=== PATIENT | male | born 1975 | race Caucasian/White ===

== ENCOUNTER 2021-10-06 10:50 | Inpatient (IN) | payer OTHER ==
[2021-10-06 11:35] VITALS: BMI 24.3
[2021-10-06] MEDS ORDERED: ACETAMINOPHEN 325 MG TABLET (FP) PO PRN ×2 (11:46)
[2021-10-06] MEDS ORDERED: BISMUTH SUBSALICYLATE 262 MG/15 ML BTL PO PRN (11:46)
[2021-10-06] MEDS ORDERED: MENTHOL/PHENOL 1 EACH UD MM PRN (11:46)
[2021-10-06] MEDS ORDERED: MAG HYDROX/AL HYDROX/SIMETH 30 ML UNIT-DOSE CUP PO PRN (11:46)
[2021-10-06] MEDS ORDERED: IBUPROFEN 400 MG TABLET (FP) PO PRN (11:46)
[2021-10-06] MEDS ORDERED: NICOTINE 10 MG CARTRIDGE (INHALER) IH PRN (11:46)
[2021-10-06] MEDS ORDERED: LORazepam 1 MG TABLET PO PRN (11:46)
[2021-10-06] MEDS ORDERED: MAGNESIUM CITRATE 300 ML BOTTLE PO PRN (11:46)
[2021-10-06] MEDS ORDERED: MAGNESIUM HYDROX 2400MG/30ML ORAL SUSPENSION 30 ML CUP PO PRN (11:46)
[2021-10-06] MEDS ORDERED: ONDANSETRON *ODT* 4 MG TABLET SL PRN (11:46)
[2021-10-06] MEDS: hydrOXYzine PAMOATE 25 MG CAPSULE (FP) PO SCH ×3 (13:29→22:22)
[2021-10-06 16:18] LABS: HEMATOCRIT 33.8 % (35.4-49); HEMOGLOBIN 11.5 GM/dL (11.7-16.9); MCH 34.3 pg (25.7-33.7); MCHC 34.1 g/dl (32.0-35.9); MEAN CELL VOLUME 100.5 fl (80-96); MEAN PLT VOLUME 8.3 fl (7.5-11.1); PLATELET COUNT 233 10^3/uL (134-434); RBC 3.36 M/mm3 (4.00-5.60); RDW 17.4 % (11.9-15.9); WHITE BLOOD COUNT 6.9 K/mm3 (4.0-10.0)
[2021-10-06 16:21] LABS: BLOOD UREA NITROGEN 7.5 mg/dL (7-18)
[2021-10-06 16:22] LABS: ALBUMIN 2.7 g/dl (3.4-5.0)
[2021-10-06 16:23] LABS: CALCIUM 8.6 mg/dL (8.5-10.1)
[2021-10-06 16:24] LABS: BILIRUBIN,TOTAL 1.4 mg/dL (0.2-1); CREATININE 0.6 mg/dL (0.55-1.3); TOT PROT 7.6 g/dl (6.4-8.2)
[2021-10-06 17:18] LABS: HIV INTERPRETATION NEGATIVE (NEGATIVE)
[2021-10-06] MEDS: LORazepam 2 MG TABLET PO SCH ×2 (18:05→22:22)
[2021-10-06] MEDS: THIAMINE HCL 100 MG TABLET (FP) PO SCH (22:22)
[2021-10-06] MEDS: MELATONIN 5 MG TABLETS PO SCH (22:23)
[2021-10-07] MEDS: LORazepam 2 MG TABLET PO SCH ×4 (05:17→22:17)
[2021-10-07] MEDS: hydrOXYzine PAMOATE 25 MG CAPSULE (FP) PO SCH ×5 (05:17→22:17)
[2021-10-07] MEDS ORDERED: methaDONE HCL 40 MG DISPERSABLE TABLET PO ONE (10:06)
[2021-10-07] MEDS: PRENATAL VITAMINS W/ FOLIC ACID TABLET (FP) PO SCH (10:40)
[2021-10-07] MEDS: LACTULOSE 20 GM/30 ML UDC (FOR ORAL USE ONLY) PO SCH ×2 (11:24→22:19)
[2021-10-07 12:33] LABS: HEMATOCRIT 35.1 % (35.4-49); HEMOGLOBIN 11.8 GM/dL (11.7-16.9); MCH 33.9 pg (25.7-33.7); MCHC 33.6 g/dl (32.0-35.9); MEAN CELL VOLUME 100.9 fl (80-96); MEAN PLT VOLUME 8.3 fl (7.5-11.1); PLATELET COUNT 210 10^3/uL (134-434); RBC 3.48 M/mm3 (4.00-5.60); RDW 17.5 % (11.9-15.9); WHITE BLOOD COUNT 6.3 K/mm3 (4.0-10.0)
[2021-10-07 12:36] LABS: CALCIUM 8.8 mg/dL (8.5-10.1)
[2021-10-07 12:37] LABS: ALBUMIN 2.5 g/dl (3.4-5.0); BLOOD UREA NITROGEN 6.8 mg/dL (7-18)
[2021-10-07 12:40] LABS: CREATININE 0.7 mg/dL (0.55-1.3)
[2021-10-07 12:42] LABS: BILIRUBIN,TOTAL 1.3 mg/dL (0.2-1); TOT PROT 7.2 g/dl (6.4-8.2)
[2021-10-07] MEDS: THIAMINE HCL 100 MG TABLET (FP) PO SCH (22:18)
[2021-10-07] MEDS: MELATONIN 5 MG TABLETS PO SCH (22:18)
[2021-10-08] MEDS: hydrOXYzine PAMOATE 25 MG CAPSULE (FP) PO SCH ×5 (05:17→22:12)
[2021-10-08] MEDS: LORazepam 1 MG TABLET PO SCH ×4 (05:17→22:12)
[2021-10-08] MEDS: methaDONE HCL 40 MG DISPERSABLE TABLET PO SCH (05:17)
[2021-10-08 10:36] LABS: ALBUMIN 2.8 g/dl (3.4-5.0)
[2021-10-08 10:41] LABS: BILIRUBIN,TOTAL 1.6 mg/dL (0.2-1); TOT PROT 7.8 g/dl (6.4-8.2)
[2021-10-08] MEDS: LACTULOSE 20 GM/30 ML UDC (FOR ORAL USE ONLY) PO SCH ×2 (10:51→22:12)
[2021-10-08] MEDS: PRENATAL VITAMINS W/ FOLIC ACID TABLET (FP) PO SCH (10:52)
[2021-10-08] MEDS: METHOCARBAMOL 500 MG TABLET PO PRN (10:52)
[2021-10-08] MEDS: MELATONIN 5 MG TABLETS PO SCH (22:12)
[2021-10-08] MEDS: THIAMINE HCL 100 MG TABLET (FP) PO SCH (22:12)
[2021-10-09] MEDS ORDERED: LORazepam 0.5 MG TABLET PO PRN
[2021-10-09] MEDS: LORazepam 0.5 MG TABLET PO SCH ×4 (05:17→22:13)
[2021-10-09] MEDS: hydrOXYzine PAMOATE 25 MG CAPSULE (FP) PO SCH ×5 (05:17→22:12)
[2021-10-09] MEDS: methaDONE HCL 40 MG DISPERSABLE TABLET PO SCH (05:17)
[2021-10-09] MEDS: PRENATAL VITAMINS W/ FOLIC ACID TABLET (FP) PO SCH (10:15)
[2021-10-09] MEDS: METHOCARBAMOL 500 MG TABLET PO PRN (10:15)
[2021-10-09] MEDS: LACTULOSE 20 GM/30 ML UDC (FOR ORAL USE ONLY) PO SCH ×2 (10:15→22:12)
[2021-10-09] MEDS: THIAMINE HCL 100 MG TABLET (FP) PO SCH (22:12)
[2021-10-09] MEDS: MELATONIN 5 MG TABLETS PO SCH (22:12)
[2021-10-10] MEDS ORDERED: LORazepam 0.5 MG TABLET PO ONE (05:00)
[2021-10-10] MEDS: hydrOXYzine PAMOATE 25 MG CAPSULE (FP) PO SCH ×2 (05:18→10:19)
[2021-10-10] MEDS: methaDONE HCL 40 MG DISPERSABLE TABLET PO SCH (05:18)
[2021-10-10 09:12] VITALS: BP 107/67; PULSE 83; TEMP 97.1
[2021-10-10] MEDS: LACTULOSE 20 GM/30 ML UDC (FOR ORAL USE ONLY) PO SCH (10:19)
[2021-10-10] MEDS: PRENATAL VITAMINS W/ FOLIC ACID TABLET (FP) PO SCH (10:19)
== END 2021-10-10 12:12 | disposition home or self-care (01) | DRG 897 ==
LOC: YASAS 10:50 → Y6N 12:17
PROVIDERS: ADMIT Allergy & Immunology; ATTEND Allergy & Immunology
PROC: HZ2ZZZZ Detoxification Services for Substance Abuse Treatment (ICD-10-PCS; principal; 2021-10-06)
DX: F10.230 Alcohol dependence with withdrawal, uncomplicated (principal); F11.20 Opioid dependence, uncomplicated; E72.20 Disorder of urea cycle metabolism, unspecified; F10.282 Alcohol dependence with alcohol-induced sleep disorder; F17.210 Nicotine dependence, cigarettes, uncomplicated; F32.A Depression, unspecified; K70.31 Alcoholic cirrhosis of liver with ascites; D64.9 Anemia, unspecified; E80.6 Other disorders of bilirubin metabolism; R74.01 Elevation of levels of liver transaminase levels; R73.09 Other abnormal glucose; K21.9 Gastro-esophageal reflux disease without esophagitis; Z62.810 Personal history of physical and sexual abuse in childhood
CPT/HCPCS: 36415; 80053; 80076; 82140; 82962; 85027; 86780; 87389; C9803; U0003; U0005

== ENCOUNTER 2021-10-18 12:54 | Inpatient (IN) | payer OTHER ==
[2021-10-18] MEDS ORDERED: BISMUTH SUBSALICYLATE 524 MG/30 ML PO PRN (15:11)
[2021-10-18] MEDS ORDERED: MAG HYDROX/AL HYDROX/SIMETH 30 ML UNIT-DOSE CUP PO PRN (15:11)
[2021-10-18] MEDS ORDERED: ACETAMINOPHEN 325 MG TABLET (FP) PO PRN ×2 (15:11)
[2021-10-18] MEDS ORDERED: METHOCARBAMOL 500 MG TABLET PO PRN (15:11)
[2021-10-18] MEDS ORDERED: NICOTINE 10 MG CARTRIDGE (INHALER) IH PRN (15:11)
[2021-10-18] MEDS ORDERED: MAGNESIUM CITRATE 300 ML BOTTLE PO PRN (15:11)
[2021-10-18] MEDS ORDERED: MAGNESIUM HYDROX 2400MG/30ML ORAL SUSPENSION 30 ML CUP PO PRN (15:11)
[2021-10-18] MEDS ORDERED: ONDANSETRON *ODT* 4 MG TABLET SL PRN (15:11)
[2021-10-18] MEDS ORDERED: IBUPROFEN 400 MG TABLET (FP) PO PRN (15:11)
[2021-10-18] MEDS ORDERED: MENTHOL/PHENOL 1 EACH UD MM PRN (15:11)
[2021-10-18 15:22] VITALS: BMI 24.6
[2021-10-18] MEDS: hydrOXYzine PAMOATE 25 MG CAPSULE (FP) PO SCH ×2 (17:28→22:55)
[2021-10-18] MEDS: PANTOPRAZOLE 40 MG TABLET PO SCH (22:54)
[2021-10-18] MEDS: MELATONIN 5 MG TABLETS PO SCH (22:54)
[2021-10-18] MEDS: THIAMINE HCL 100 MG TABLET (FP) PO SCH (22:55)
[2021-10-19] MEDS: hydrOXYzine PAMOATE 25 MG CAPSULE (FP) PO SCH ×5 (08:38→22:31)
[2021-10-19] MEDS ORDERED: LORazepam 1 MG TABLET PO PRN (09:30)
[2021-10-19] MEDS ORDERED: SPIRONOLACTONE 100 MG PO SCH (10:00)
[2021-10-19] MEDS ORDERED: PATIENT'S OWN MEDICATION (NON-FORMULARY) (Thiamine Mononitrate [Vitamin B-1] 100 MG Tablet PO SCH (10:00)
[2021-10-19 10:02] LABS: HEMATOCRIT 35.9 % (35.4-49); HEMOGLOBIN 12.1 GM/dL (11.7-16.9); MCHC 33.7 g/dl (32.0-35.9); MEAN CELL VOLUME 97.9 fl (80-96); MEAN PLT VOLUME 8.3 fl (7.5-11.1); PLATELET COUNT 170 10^3/uL (134-434); RBC 3.67 M/mm3 (4.00-5.60); RDW 16.5 % (11.9-15.9); WHITE BLOOD COUNT 5.5 K/mm3 (4.0-10.0)
[2021-10-19 10:16] LABS: CALCIUM 8.6 mg/dL (8.5-10.1)
[2021-10-19 10:17] LABS: ALBUMIN 2.8 g/dl (3.4-5.0); BLOOD UREA NITROGEN 8.7 mg/dL (7-18); CREATININE 0.7 mg/dL (0.55-1.3)
[2021-10-19 10:19] LABS: BILIRUBIN,TOTAL 1.1 mg/dL (0.2-1); TOT PROT 6.8 g/dl (6.4-8.2)
[2021-10-19] MEDS: PRENATAL VITAMINS W/ FOLIC ACID TABLET (FP) PO SCH (10:22)
[2021-10-19] MEDS: PANTOPRAZOLE 40 MG TABLET PO SCH ×2 (10:23→22:30)
[2021-10-19] MEDS: FUROSEMIDE 40 MG TABLET (FP) PO SCH (10:23)
[2021-10-19] MEDS: FOLIC ACID 1 MG TABLET (FP) PO SCH (10:23)
[2021-10-19] MEDS: methaDONE HCL 40 MG DISPERSABLE TABLET PO SCH (10:23)
[2021-10-19] MEDS: SPIRONOLACTONE 25 MG TABLET PO SCH (11:24)
[2021-10-19] MEDS: CYANOCOBALAMIN (VITAMIN B-12) 100 MCG TABLET PO SCH (11:25)
[2021-10-19] MEDS: LORazepam 2 MG TABLET PO SCH ×3 (11:25→22:31)
[2021-10-19] MEDS: MELATONIN 5 MG TABLETS PO SCH (22:31)
[2021-10-19] MEDS: THIAMINE HCL 100 MG TABLET (FP) PO SCH (22:32)
[2021-10-20] MEDS: LORazepam 2 MG TABLET PO SCH ×4 (05:32→22:14)
[2021-10-20] MEDS: hydrOXYzine PAMOATE 25 MG CAPSULE (FP) PO SCH ×5 (05:32→22:15)
[2021-10-20] MEDS: methaDONE HCL 40 MG DISPERSABLE TABLET PO SCH (05:32)
[2021-10-20] MEDS: SPIRONOLACTONE 25 MG TABLET PO SCH (10:48)
[2021-10-20] MEDS: FOLIC ACID 1 MG TABLET (FP) PO SCH (10:48)
[2021-10-20] MEDS: PRENATAL VITAMINS W/ FOLIC ACID TABLET (FP) PO SCH (10:50)
[2021-10-20] MEDS: FUROSEMIDE 40 MG TABLET (FP) PO SCH (10:52)
[2021-10-20] MEDS: CYANOCOBALAMIN (VITAMIN B-12) 100 MCG TABLET PO SCH (10:53)
[2021-10-20] MEDS: PANTOPRAZOLE 40 MG TABLET PO SCH ×2 (10:53→22:15)
[2021-10-20] MEDS: THIAMINE HCL 100 MG TABLET (FP) PO SCH (22:15)
[2021-10-20] MEDS: MELATONIN 5 MG TABLETS PO SCH (22:16)
[2021-10-21] MEDS: LORazepam 1 MG TABLET PO SCH ×4 (05:40→22:38)
[2021-10-21] MEDS: methaDONE HCL 40 MG DISPERSABLE TABLET PO SCH (05:40)
[2021-10-21] MEDS: hydrOXYzine PAMOATE 25 MG CAPSULE (FP) PO SCH ×5 (05:40→22:38)
[2021-10-21] MEDS: FUROSEMIDE 40 MG TABLET (FP) PO SCH (10:12)
[2021-10-21] MEDS: PANTOPRAZOLE 40 MG TABLET PO SCH ×2 (10:12→22:38)
[2021-10-21] MEDS: FOLIC ACID 1 MG TABLET (FP) PO SCH (10:12)
[2021-10-21] MEDS: PRENATAL VITAMINS W/ FOLIC ACID TABLET (FP) PO SCH (10:12)
[2021-10-21] MEDS: CYANOCOBALAMIN (VITAMIN B-12) 100 MCG TABLET PO SCH (10:13)
[2021-10-21] MEDS: SPIRONOLACTONE 25 MG TABLET PO SCH (10:13)
[2021-10-21] MEDS: THIAMINE HCL 100 MG TABLET (FP) PO SCH (22:38)
[2021-10-21] MEDS: MELATONIN 5 MG TABLETS PO SCH (22:38)
[2021-10-22] MEDS ORDERED: LORazepam 0.5 MG TABLET PO PRN
[2021-10-22] MEDS: hydrOXYzine PAMOATE 25 MG CAPSULE (FP) PO SCH ×5 (05:24→22:42)
[2021-10-22] MEDS: LORazepam 0.5 MG TABLET PO SCH ×4 (05:24→22:42)
[2021-10-22] MEDS: methaDONE HCL 40 MG DISPERSABLE TABLET PO SCH (05:24)
[2021-10-22] MEDS: PRENATAL VITAMINS W/ FOLIC ACID TABLET (FP) PO SCH (10:31)
[2021-10-22] MEDS: FOLIC ACID 1 MG TABLET (FP) PO SCH (10:31)
[2021-10-22] MEDS: FUROSEMIDE 40 MG TABLET (FP) PO SCH (10:31)
[2021-10-22] MEDS: SPIRONOLACTONE 25 MG TABLET PO SCH (10:31)
[2021-10-22] MEDS: PANTOPRAZOLE 40 MG TABLET PO SCH ×2 (10:31→22:42)
[2021-10-22] MEDS: CYANOCOBALAMIN (VITAMIN B-12) 100 MCG TABLET PO SCH (10:34)
[2021-10-22] MEDS: THIAMINE HCL 100 MG TABLET (FP) PO SCH (22:42)
[2021-10-22] MEDS: MELATONIN 5 MG TABLETS PO SCH (22:42)
[2021-10-23] MEDS ORDERED: LORazepam 0.5 MG TABLET PO ONE (05:00)
[2021-10-23] MEDS: methaDONE HCL 40 MG DISPERSABLE TABLET PO SCH (05:46)
[2021-10-23] MEDS: hydrOXYzine PAMOATE 25 MG CAPSULE (FP) PO SCH ×5 (05:46→22:18)
[2021-10-23] MEDS: SPIRONOLACTONE 25 MG TABLET PO SCH (10:21)
[2021-10-23] MEDS: CYANOCOBALAMIN (VITAMIN B-12) 100 MCG TABLET PO SCH (10:21)
[2021-10-23] MEDS: PRENATAL VITAMINS W/ FOLIC ACID TABLET (FP) PO SCH (10:21)
[2021-10-23] MEDS: PANTOPRAZOLE 40 MG TABLET PO SCH ×2 (10:21→22:18)
[2021-10-23] MEDS: FOLIC ACID 1 MG TABLET (FP) PO SCH (10:21)
[2021-10-23] MEDS: FUROSEMIDE 40 MG TABLET (FP) PO SCH (10:21)
[2021-10-23] MEDS: MELATONIN 5 MG TABLETS PO SCH (22:18)
[2021-10-23] MEDS: THIAMINE HCL 100 MG TABLET (FP) PO SCH (22:18)
[2021-10-24] MEDS: hydrOXYzine PAMOATE 25 MG CAPSULE (FP) PO SCH ×2 (05:24→10:24)
[2021-10-24] MEDS: methaDONE HCL 40 MG DISPERSABLE TABLET PO SCH (05:24)
[2021-10-24 09:02] VITALS: BP 110/67; PULSE 81; TEMP 97.5
[2021-10-24] MEDS: PANTOPRAZOLE 40 MG TABLET PO SCH (10:24)
[2021-10-24] MEDS: CYANOCOBALAMIN (VITAMIN B-12) 100 MCG TABLET PO SCH (10:24)
[2021-10-24] MEDS: SPIRONOLACTONE 25 MG TABLET PO SCH (10:24)
[2021-10-24] MEDS: FOLIC ACID 1 MG TABLET (FP) PO SCH (10:24)
[2021-10-24] MEDS: PRENATAL VITAMINS W/ FOLIC ACID TABLET (FP) PO SCH (10:24)
[2021-10-24] MEDS: FUROSEMIDE 40 MG TABLET (FP) PO SCH (10:24)
== END 2021-10-24 10:31 | disposition home or self-care (01) | DRG 897 ==
LOC: YASAS 12:54 → Y3N 16:05
PROVIDERS: ADMIT Allergy & Immunology; ATTEND Allergy & Immunology
PROC: HZ2ZZZZ Detoxification Services for Substance Abuse Treatment (ICD-10-PCS; principal; 2021-10-18)
DX: F10.230 Alcohol dependence with withdrawal, uncomplicated (principal); F11.20 Opioid dependence, uncomplicated; F17.210 Nicotine dependence, cigarettes, uncomplicated; Z87.19 Personal history of other diseases of the digestive system; Z87.448 Personal history of other diseases of urinary system
CPT/HCPCS: 36415; 80053; 85027; 86780; C9803; U0003; U0005

== ENCOUNTER 2021-12-01 09:28 | Inpatient (IN) | payer OTHER ==
[2021-12-01] MEDS ORDERED: MAGNESIUM CITRATE 300 ML BOTTLE PO PRN (10:04)
[2021-12-01] MEDS ORDERED: IBUPROFEN 400 MG TABLET (FP) PO PRN (10:04)
[2021-12-01] MEDS ORDERED: MENTHOL/PHENOL 1 EACH UD MM PRN (10:04)
[2021-12-01] MEDS ORDERED: MAGNESIUM HYDROX 2400MG/30ML ORAL SUSPENSION 30 ML CUP PO PRN (10:04)
[2021-12-01] MEDS ORDERED: ONDANSETRON *ODT* 4 MG TABLET SL PRN (10:04)
[2021-12-01] MEDS ORDERED: LORazepam 1 MG TABLET PO PRN (10:04)
[2021-12-01] MEDS ORDERED: BISMUTH SUBSALICYLATE 262 MG/15 ML BTL PO PRN (10:04)
[2021-12-01] MEDS ORDERED: ACETAMINOPHEN 325 MG TABLET (FP) PO PRN ×2 (10:04)
[2021-12-01] MEDS ORDERED: MAG HYDROX/AL HYDROX/SIMETH 30 ML UNIT-DOSE CUP PO PRN (10:04)
[2021-12-01] MEDS ORDERED: NICOTINE 10 MG CARTRIDGE (INHALER) IH PRN (10:04)
[2021-12-01 10:11] VITALS: BMI 27.3
[2021-12-01] MEDS: NICOTINE 7 MG/24 HOURS TOPICAL PATCH TD SCH (10:44)
[2021-12-01] MEDS: PRENATAL VITAMINS W/ FOLIC ACID TABLET (FP) PO SCH (10:44)
[2021-12-01] MEDS: LORazepam 2 MG TABLET PO SCH ×3 (10:45→22:31)
[2021-12-01] MEDS: methaDONE HCL 40 MG DISPERSABLE TABLET PO SCH (12:09)
[2021-12-01 13:11] LABS: HEMATOCRIT 34.9 % (35.4-49); MCH 31.1 pg (25.7-33.7); MCHC 34.3 g/dl (32.0-35.9); MEAN CELL VOLUME 90.6 fl (80-96); MEAN PLT VOLUME 8.5 fl (7.5-11.1); PLATELET COUNT 129 10^3/uL (134-434); RBC 3.85 M/mm3 (4.00-5.60); RDW 15.5 % (11.9-15.9); WHITE BLOOD COUNT 6.2 K/mm3 (4.0-10.0)
[2021-12-01 13:34] LABS: ALBUMIN 3.4 g/dl (3.4-5.0); BLOOD UREA NITROGEN 3.8 mg/dL (7-18)
[2021-12-01 13:35] LABS: CALCIUM 8.3 mg/dL (8.5-10.1)
[2021-12-01 13:37] LABS: CREATININE 0.7 mg/dL (0.55-1.3)
[2021-12-01 13:39] LABS: TOT PROT 7.5 g/dl (6.4-8.2)
[2021-12-01] MEDS: hydrOXYzine PAMOATE 25 MG CAPSULE (FP) PO SCH ×3 (13:47→22:32)
[2021-12-01] MEDS: THIAMINE HCL 100 MG TABLET (FP) PO SCH (22:32)
[2021-12-01] MEDS: MELATONIN 5 MG TABLETS PO SCH (22:32)
[2021-12-01] MEDS: METHOCARBAMOL 500 MG TABLET PO PRN (22:32)
[2021-12-01] MEDS: PANTOPRAZOLE 40 MG TABLET PO SCH (22:32)
[2021-12-02] MEDS: hydrOXYzine PAMOATE 25 MG CAPSULE (FP) PO SCH ×5 (06:28→22:20)
[2021-12-02] MEDS: LORazepam 2 MG TABLET PO SCH ×4 (06:28→22:20)
[2021-12-02] MEDS: SPIRONOLACTONE 25 MG TABLET PO SCH (10:19)
[2021-12-02] MEDS: PANTOPRAZOLE 40 MG TABLET PO SCH ×2 (10:19→22:20)
[2021-12-02] MEDS: PRENATAL VITAMINS W/ FOLIC ACID TABLET (FP) PO SCH (10:20)
[2021-12-02] MEDS: methaDONE HCL 40 MG DISPERSABLE TABLET PO SCH (10:20)
[2021-12-02] MEDS: FUROSEMIDE 40 MG TABLET (FP) PO SCH (10:20)
[2021-12-02] MEDS: NICOTINE 7 MG/24 HOURS TOPICAL PATCH TD SCH (10:23)
[2021-12-02] MEDS: THIAMINE HCL 100 MG TABLET (FP) PO SCH (22:20)
[2021-12-02] MEDS: MELATONIN 5 MG TABLETS PO SCH (22:21)
[2021-12-02] MEDS: METHOCARBAMOL 500 MG TABLET PO PRN (22:22)
[2021-12-03] MEDS: hydrOXYzine PAMOATE 25 MG CAPSULE (FP) PO SCH ×5 (05:29→22:13)
[2021-12-03] MEDS: LORazepam 1 MG TABLET PO SCH ×4 (05:29→22:14)
[2021-12-03] MEDS: methaDONE HCL 40 MG DISPERSABLE TABLET PO SCH (10:31)
[2021-12-03] MEDS: METHOCARBAMOL 500 MG TABLET PO PRN (10:31)
[2021-12-03] MEDS: PRENATAL VITAMINS W/ FOLIC ACID TABLET (FP) PO SCH (10:32)
[2021-12-03] MEDS: PANTOPRAZOLE 40 MG TABLET PO SCH ×2 (10:32→22:13)
[2021-12-03] MEDS: FUROSEMIDE 40 MG TABLET (FP) PO SCH (10:32)
[2021-12-03] MEDS: ESCITALOPRAM OXALATE 10 MG TABLET PO SCH (10:32)
[2021-12-03] MEDS: SPIRONOLACTONE 25 MG TABLET PO SCH (10:32)
[2021-12-03] MEDS: NICOTINE 7 MG/24 HOURS TOPICAL PATCH TD SCH (10:33)
[2021-12-03] MEDS ORDERED: POTASSIUM CHLORIDE TABS 20 MEQ TABLET.ER (FP) PO ONE (20:37)
[2021-12-03] MEDS: MELATONIN 5 MG TABLETS PO SCH (22:13)
[2021-12-03] MEDS: THIAMINE HCL 100 MG TABLET (FP) PO SCH (22:13)
[2021-12-04] MEDS ORDERED: LORazepam 0.5 MG TABLET PO PRN
[2021-12-04] MEDS: hydrOXYzine PAMOATE 25 MG CAPSULE (FP) PO SCH ×5 (05:53→22:33)
[2021-12-04] MEDS: LORazepam 0.5 MG TABLET PO SCH ×4 (05:53→22:33)
[2021-12-04 10:24] LABS: BLOOD UREA NITROGEN 9.7 mg/dL (7-18); CALCIUM 8.6 mg/dL (8.5-10.1)
[2021-12-04 10:25] LABS: ALBUMIN 3.1 g/dl (3.4-5.0)
[2021-12-04 10:26] LABS: CREATININE 0.8 mg/dL (0.55-1.3)
[2021-12-04 10:27] LABS: TOT PROT 6.9 g/dl (6.4-8.2)
[2021-12-04 10:30] LABS: BILIRUBIN,TOTAL 0.9 mg/dL (0.2-1)
[2021-12-04] MEDS: PRENATAL VITAMINS W/ FOLIC ACID TABLET (FP) PO SCH (10:35)
[2021-12-04] MEDS: methaDONE HCL 40 MG DISPERSABLE TABLET PO SCH (10:35)
[2021-12-04] MEDS: FUROSEMIDE 40 MG TABLET (FP) PO SCH (10:36)
[2021-12-04] MEDS: SPIRONOLACTONE 25 MG TABLET PO SCH (10:36)
[2021-12-04] MEDS: PANTOPRAZOLE 40 MG TABLET PO SCH ×2 (10:36→22:33)
[2021-12-04] MEDS: ESCITALOPRAM OXALATE 10 MG TABLET PO SCH (10:36)
[2021-12-04] MEDS: NICOTINE 7 MG/24 HOURS TOPICAL PATCH TD SCH (10:46)
[2021-12-04 14:11] LABS: SARS-CoV-2 NAA Not Detected (Not Detected)
[2021-12-04] MEDS: THIAMINE HCL 100 MG TABLET (FP) PO SCH (22:33)
[2021-12-04] MEDS: METHOCARBAMOL 500 MG TABLET PO PRN (22:33)
[2021-12-04] MEDS: MELATONIN 5 MG TABLETS PO SCH (22:33)
[2021-12-05] MEDS ORDERED: LORazepam 0.5 MG TABLET PO ONE (05:00)
[2021-12-05] MEDS: hydrOXYzine PAMOATE 25 MG CAPSULE (FP) PO SCH ×2 (05:50→10:39)
[2021-12-05 09:40] VITALS: BP 123/60; PULSE 86; TEMP 97.5
[2021-12-05] MEDS: FUROSEMIDE 40 MG TABLET (FP) PO SCH (10:39)
[2021-12-05] MEDS: PANTOPRAZOLE 40 MG TABLET PO SCH (10:39)
[2021-12-05] MEDS: ESCITALOPRAM OXALATE 10 MG TABLET PO SCH (10:39)
[2021-12-05] MEDS: PRENATAL VITAMINS W/ FOLIC ACID TABLET (FP) PO SCH (10:39)
[2021-12-05] MEDS: NICOTINE 7 MG/24 HOURS TOPICAL PATCH TD SCH (10:39)
[2021-12-05] MEDS: methaDONE HCL 40 MG DISPERSABLE TABLET PO SCH (10:39)
[2021-12-05] MEDS: SPIRONOLACTONE 25 MG TABLET PO SCH (10:39)
== END 2021-12-05 11:45 | disposition home or self-care (01) | DRG 897 ==
LOC: YASAS 09:28 → Y3N 10:37
PROVIDERS: ADMIT Allergy & Immunology; ATTEND Allergy & Immunology
PROC: HZ2ZZZZ Detoxification Services for Substance Abuse Treatment (ICD-10-PCS; principal; 2021-12-01)
DX: F10.230 Alcohol dependence with withdrawal, uncomplicated (principal); F11.20 Opioid dependence, uncomplicated; F17.210 Nicotine dependence, cigarettes, uncomplicated; F10.24 Alcohol dependence with alcohol-induced mood disorder; F41.8 Other specified anxiety disorders; F32.A Depression, unspecified; K70.30 Alcoholic cirrhosis of liver without ascites; K21.9 Gastro-esophageal reflux disease without esophagitis; R73.9 Hyperglycemia, unspecified; R79.89 Other specified abnormal findings of blood chemistry; Z87.19 Personal history of other diseases of the digestive system
CPT/HCPCS: 36415; 80051; 80053; 85027; 86780; C9803; U0003; U0005